=== PATIENT | male | born 1995 | race Caucasian/White ===

== ENCOUNTER 2019-01-17 21:45 | Emergency (ER) | payer OTHER ==
[~2019-01-17] VITALS: Ht 188 cm; Wt 87.5 kg
[2019-01-17] MEDS ORDERED: PENICILLIN V P500 MG PO (22:05)
[2019-01-17] MEDS ORDERED: HYDROCODON-ACE1 EAC7 PO (22:05)
[2019-01-17 22:50] VITALS: BP 143/89
== END 2019-01-17 22:50 | disposition home or self-care (01) ==
LOC: M.ERS 21:45
DX: K02.9 Dental caries, unspecified (principal); F17.210 Nicotine dependence, cigarettes, uncomplicated

== ENCOUNTER 2020-08-10 21:47 | Emergency (ER) | payer OTHER ==
[~2020-08-10] VITALS: Ht 188 cm; Wt 93.9 kg
[~2020-08-10 21:47] MED LIST: HYDROCODON-ACE1 EAC7 PO; PENICILLIN V P500 MG PO
[2020-08-10] MEDS ORDERED: WELLBUTRIN 100100 MG PO (22:06)
[2020-08-10] MEDS ORDERED: PREDNISONE50 MG PO (23:35)
[2020-08-10] MEDS ORDERED: MELOXICAM15 MG PO (23:35)
[2020-08-10] MEDS ORDERED: ACETAMINOPHEN-1 EAC2 PO (23:35)
[2020-08-10 23:45] VITALS: BP 142/86
== END 2020-08-10 23:45 | disposition home or self-care (01) ==
LOC: M.ERS 21:47
DX: S83.92XA Sprain of unspecified site of left knee, initial encounter (principal); F32.9 Major depressive disorder, single episode, unspecified; Z90.49 Acquired absence of other specified parts of digestive tract; Z98.890 Other specified postprocedural states; Z79.899 Other long term (current) drug therapy; X50.1XXA Overexertion from prolonged static or awkward postures, initial encounter; Y93.39 Activity, other involving climbing, rappelling and jumping off; Y92.89 Other specified places as the place of occurrence of the external cause; Y99.8 Other external cause status